=== PATIENT | female | born 1985 | race Caucasian/White ===

== ENCOUNTER 2018-01-02 17:08 | Emergency (ER) | payer OTHER ==
[~2018-01-02] VITALS: Ht 152.4 cm; Wt 76.7 kg
[2018-01-02 17:13] VITALS: BP 131/76
[2018-01-02] MEDS ORDERED: cefTRIAXone 1,000 MG in LIDOCAINE 1% ***ER ONLY *** 2.1 ML IM ONE (17:40)
[2018-01-02] MEDS ORDERED: ALBUTEROL SULFATE/IPRATROPIU 3 ML SOL IH ONE (17:40)
[2018-01-02] MEDS ORDERED: methylPREDNISolone SS 125 MG in WATER STERILE 2 ML IM ONE (17:40)
[2018-01-02 18:41] VITALS: BP 121/68
== END 2018-01-02 18:41 | disposition home or self-care (01) ==
LOC: MED 17:08
DX: J06.9 Acute upper respiratory infection, unspecified (principal); H66.93 Otitis media, unspecified, bilateral; M06.9 Rheumatoid arthritis, unspecified; F84.0 Autistic disorder
CPT/HCPCS: 94640; 96372; 99284; J0696; J2001; J2930; J7620